=== PATIENT | female | born 1995 | race Caucasian/White ===

== ENCOUNTER 2017-09-21 19:43 | Emergency (ER) | payer MEDICAID ==
[~2017-09-21] VITALS: Ht 175.3 cm; Wt 81.6 kg
[2017-09-21] MEDS ORDERED: ACETAMINOPHEN 325 MG TAB PO ONE (23:23)
[2017-09-22 04:00] VITALS: BP 116/72
[2017-09-22] MEDS ORDERED: cefTRIAXone SOD 1,000 MG VL IM ONE (04:30)
[2017-09-22] MEDS ORDERED: HYDROcodone-ACET 5/325MG TAB PO ONE (04:30)
== END 2017-09-22 05:51 | disposition home or self-care (01) ==
LOC: EDBD 19:43 → ER 19:43
DX: S02.2XXA Fracture of nasal bones, initial encounter for closed fracture (principal); S00.83XA Contusion of other part of head, initial encounter; Y08.89XA Assault by other specified means, initial encounter; Y93.89 Activity, other specified; Y99.8 Other external cause status; Y92.89 Other specified places as the place of occurrence of the external cause
CPT/HCPCS: 70486; 96372; 99284; J0696